=== PATIENT | male | born 1990 | race Caucasian/White ===

== ENCOUNTER 2023-02-12 15:59 | Emergency (ER) | payer OTHER, SELFPAY ==
[2023-02-12 16:07] VITALS: BP 132/82; PULSE 80; RESP 16; TEMP 36.7; O2SAT 99
[2023-02-12 16:29] VITALS: BP 132/82; PULSE 80; RESP 16; TEMP 36.7; O2SAT 99
--- NOTE | 2023-02-12 17:25 | ED.EAR ---
HPI - Ear Problem General Chief complaint: Ear Stated complaint: Ear Problem/Congestion Source: patient Mode of arrival: ambulatory Limitations: no limitations History of Present Illness HPI Narrative: Patient presents for evaluation of bilateral ear pain and muffled hearing. He states he recently was treated for URI with azithromycin back in January of 2023. He was experiencing sinus congestion, postnasal drainage and mild cough. His symptoms improved but then he developed bilateral ear pain and muffled hearing. He denies any fever, chills, nausea, vomiting, diarrhea. He reports smoking occasionally. He is not taking any medication to assist with the symptoms. Denies any drainage from the ears. Related Data Home Medications Medication Instructions Recorded Confirmed levothyroxine 75 mcg tablet mcg 02/12/23 Allergies Allergy/AdvReac Type Severity Reaction Status Date / Time Penicillins Allergy Intermediate Rash Verified 02/12/23 17:30 Review of Systems Review of Systems: CONSTITUTIONAL: Denies fever, chills, or sweats. EYES: Denies visual changes, redness, or discharge. ENT: Reports recent sinus congestion and drainage, improved. Reports bilateral ear pain and muffled hearing. CARDIOVASCULAR: Denies chest pain, palpitations, or edema. RESPIRATORY: Denies cough or dyspnea. GASTROINTESTINAL: Denies abdominal pain, nausea, vomiting, or diarrhea. GENITOURINARY: Denies dysuria or hematuria. SKIN: Denies rash or itching. MUSCULOSKELETAL: Denies back pain, joint pain, or myalgia. NEUROLOGIC: Denies headache, numbness, dizziness, or weakness. PSYCHIATRIC: Denies anxiety or depression. FOR[facility]LY [facility] Past Medical History Medical History Lymphoma Surgical History Surgical History No pertinent past surgical history Family History Family History Mother Family history non-contributory Social History Social History Smoking status: Current some day smoker Substance use: never Gender identity (if verbalized by the patient): Male Sexual Orientation (if Verbalized by the Patient): Straight or Heterosexual Spiritual care concerns: No Exam Narrative: GENERAL: Well-appearing, well-nourished, and in no acute distress. HEAD: Normocephalic, atraumatic. EYES: PERRLA and EOMI. ENT: Nares clear, no rhinorrhea or epistaxis. Mucous membranes moist. Oropharynx without tonsillar hypertrophy exudate or other lesions. Left tympanic membrane erythema. Right tympanic membrane is erythematous and bulging. There is thick yellow fluid behind right tympanic membrane NECK: Supple. No adenopathy or masses. No carotid bruits or JVD CHEST: Clear to auscultation. No respiratory distress. No wheezes rales or rhonchi HEART: Regular rate and rhythm. No murmur heard. Normal peripheral pulses. ABDOMEN: Soft, nontender, nondistended, normal active bowel sounds. EXTREMITIES: Normal range of motion. No edema. SKIN: Warm, dry, no rash. NEURO: No focal deficits. Alert and oriented x3. PSYCH: Normal mood and affect. Course Course Emergency Course: This is a 32-year-old male who presented for evaluation of bilateral ear pain and muffled hearing. He has evidence of otitis media on exam. He has allergies to penicillins will treat with cefdinir. Increase hydration. Recommend smoking cessation. [id number] agents for symptom management. Follow up with primary provider. Go to the ER for worsening symptoms. Patient in agreement with plan of care. Level of Care: Express Care Visit Vital Signs Vital signs: Vital Signs Temperature 36.7 C 02/12/23 16:07 Pulse Rate 80 02/12/23 16:07 Respiratory Rate 16 02/12/23 16:07 Blood Pressure 132/82 02/12/23 16:07 Pulse Oximetry 99
== END 2023-02-12 17:27 | disposition home or self-care (01) ==
PROVIDERS: Emergency Provider Nurse Practitioner; PCP Internal Medicine
DX: H66.91 Otitis media, unspecified, right ear (principal); Z72.0 Tobacco use; K21.9 Gastro-esophageal reflux disease without esophagitis; E03.9 Hypothyroidism, unspecified; Z85.71 Personal history of Hodgkin lymphoma
CPT/HCPCS: 99213; G0463

== ENCOUNTER 2023-08-30 08:56 | Emergency (ER) | payer OTHER, SELFPAY ==
--- NOTE | ~2023-08-30 | XR_ITS ---
XR tibia fibula LT 2V Ordering provider: Dudley Buchanan MD History: . hit left funes with a hammer,SMALL MID FUNES LAC-HEAVY BLEEDIN . Comparison: None. FINDINGS: BONES: No acute fracture or dislocation. JOINT SPACES: Normal. SOFT TISSUES: Normal. IMPRESSION: No acute osseous abnormality left leg. Reviewed, dictated and finalized at location A.
[2023-08-30 08:56] VITALS: BP 133/94; PULSE 108; RESP 18; TEMP 36.3; O2SAT 98
--- NOTE | 2023-08-30 09:04 | ED.GENADULT ---
HPI - General Adult General Chief complaint: Wound/Laceration Stated complaint: laceration Time Seen by Provider: 08/30/23 09:00 History of Present Illness HPI narrative: The patient is a 32-year-old male who was cutting a tree when the forks of a hammer he was using accidentally hit his left anterior funes resulting in a laceration and bleeding of that area. Able to ambulate but with a limp and pain. Bleeding is controlled now. Last tetanus given in 2020 and 2022. No other injuries. No loss of consciousness. Related Data Home Medications Medication Instructions Recorded Confirmed levothyroxine 75 mcg tablet 75 mcg PO DAILY 02/12/23 08/30/23 Allergies Allergy/AdvReac Type Severity Reaction Status Date / Time Penicillins Allergy Intermediate Rash Verified 08/30/23 09:11 Review of Systems Review of Systems: All systems reviewed & are unremarkable except as noted in HPI and below Constitutional: Constitutional: Denies chills, Denies excessive sweating, Denies fatigue, Denies fever(s), Denies headache(s) and Denies weakness Eyes: Eyes: Denies change in vision and Denies photophobia ENT: Denies dysphagia, Denies dizziness, Denies headache(s), Denies lip swelling, Denies nasal congestion, Denies sore throat and Denies tongue swelling Cardiovascular: Cardiovascular: Denies chest pain, Denies syncope, Denies rapid heart rate and Denies dyspnea Respiratory: Respiratory: Denies cough, Denies dyspnea and Denies wheezing Gastrointestinal: Gastrointestinal: Denies abdominal pain, Denies constipation, Denies dysphagia, Denies diarrhea, Denies nausea and Denies vomiting Genitourinary: Genitourinary: Denies hematuria, Denies dysuria, Denies urinary frequency and Denies urinary urgency Musculoskeletal: Musculoskeletal: Denies back pain, Denies myalgias, Denies arthralgias, Denies joint swelling and Denies numbness Integumentary/Breasts: Skin/Breast: Denies pruritus, Denies erythema and Denies rash Comments: laceration at left anterior funes below the knee Neurologic: Denies confusion, Denies dizziness, Denies syncope, Denies headache(s), Denies focal weakness, Denies numbness and Denies weakness Psychiatric: Psychiatric: Denies anxiety and Denies confusion Endocrine: Endocrine: Denies excessive sweating and Denies fatigue Hematologic/Lymphatic: Hematologic/Lymphatic: Denies easy bleeding and Denies easy bruising Allergic/Immunologic: Allergic/Immunologic: Denies lip swelling, Denies tongue swelling and Denies wheezing PMFSH Past Medical History Medical History Lymphoma Surgical History Surgical History No pertinent past surgical history Family History Family History Mother Family history non-contributory Social History Social History Smoking status: Current some day smoker Substance use: never Gender identity (if verbalized by the patient): Male Sexual Orientation (if Verbalized by the Patient): Straight or Heterosexual Spiritual care concerns: No Exam Const: General: healthy appearing, no acute distress, alert and well nourished Nutritional Appearance: well nourished Orientation/consciousness: patient oriented x3 Limitations: no limitations HENMT: Head: normal to inspection Ears: external ears normal Face/Nose/Sinus: normal facial exam Face and sinus: normal facial exam Mouth: Yes moist mucous membranes Throat: posterior oropharynx normal Eyes: Conjunctivae: conjunctivae normal Pupils: Equal, round and reactive pupils present EOM: EOMs intact bilaterally Neck: Neck: normal visual inspection and no meningeal signs Chest: Chest palpation & inspection: normal inspection of the chest and no tenderness Resp: Effort & Inspection: normal respiratory effort and not labored Auscul
[2023-08-30] MEDS: LIDOCAINE HCL 1% LOCAL INJ 10 ML VIAL 5 ML INFILTRATE (09:51)
[2023-08-30] MEDS: NEOMYCIN/POLYMYXIN/BACITRACIN OINTMENT 15 GM TUBE 1 APPLIC TOPICAL (09:52)
[2023-08-30 10:15] VITALS: BP 128/78; PULSE 86; RESP 18; O2SAT 99
--- NOTE | 2023-08-30 10:47 | PC.NURSE ---
+PMS NOTED POST WOUND REPAIR AND DRESSING. PT DC HOME, AMBULATORY WITHOUT DIFFICULTY.
== END 2023-08-30 10:15 | disposition home or self-care (01) ==
LOC: CHSED 09:56
PROVIDERS: Emergency Provider Emergency Medicine; PCP Internal Medicine
DX: S81.812A Laceration without foreign body, left lower leg, initial encounter (principal); F17.200 Nicotine dependence, unspecified, uncomplicated; W27.8XXA Contact with other nonpowered hand tool, initial encounter
CPT/HCPCS: 12001; 73590; 99283